=== PATIENT | male | born 1975 | race Caucasian/White ===

== ENCOUNTER 2018-07-21 12:29 | Emergency (ER) | payer SELFPAY ==
[~2018-07-21] VITALS: Ht 177.8 cm; Wt 54.5 kg
[2018-07-21] MEDS ORDERED: UMEC62.5 (12:32)
[2018-07-21] MEDS ORDERED: ALBU8HFA IH (12:33)
[2018-07-21] MEDS ORDERED: PRED1 PO (12:33)
[2018-07-21 14:34] VITALS: BP 132/86
[2018-07-22] MEDS ORDERED: NICO-703 TD (19:10)
== END 2018-07-21 15:09 | disposition home or self-care (01) ==
LOC: EMS 12:36
DX: F15.10 Other stimulant abuse, uncomplicated (principal); F31.9 Bipolar disorder, unspecified; J44.9 Chronic obstructive pulmonary disease, unspecified; F17.210 Nicotine dependence, cigarettes, uncomplicated
CPT/HCPCS: 99283

== ENCOUNTER 2018-07-22 18:49 | Inpatient (IN) | payer MEDICAID ==
[~2018-07-22] VITALS: Ht 177.8 cm; Wt 54.9 kg
[~2018-07-22 18:49] MED LIST: ALBU8HFA IH; PRED1 PO; UMEC62.5
[2018-07-22] MEDS ORDERED: NICO-703 TD (19:10)
[2018-07-22 20:22] LABS: BASOPHILS % (AUTO) 0.8 % (0.0-2.0); EOSINOPHILS % (AUTO) 1.9 % (1.0-6.0); HEMATOCRIT 40.6 % (41-53); HEMOGLOBIN 13.4 g/dL (13.5-17.5); LYMPHOCYTES # (AUTO) 2.2 K/uL (1.0-4.8); LYMPHOCYTES % (AUTO) 21.6 % (22.0-44.0); MEAN CORPUSCULAR HEMOGLOBIN 30.5 pg (26.0-34.0); MEAN CORPUSCULAR HGB CONC 33.1 G/dL (31.0-37.0); MEAN CORPUSCULAR VOLUME 92 fL (80-100); MONOCYTES # (AUTO) 0.8 K/uL (0.1-1.0); MONOCYTES % (AUTO) 7.7 % (2.0-9.0); NEUTROPHILS # (AUTO) 7.1 K/uL (1.8-7.7); PLATELET COUNT (AUTO) 366 K/uL (150-450); RED CELL DISTRIBUTION WIDTH 14.1 % (11.5-14.5)
[2018-07-22 20:27] LABS: ANION GAP 5 mmol/L (8-16); CARBON DIOXIDE 35 mmol/L (22-29); CHLORIDE 103 mmol/L (98-107); CREATININE 0.92 mg/dL (0.60-1.30); GLOMERULAR FILTR. RATE CALC > 60 mL/min (>60); GLUCOSE,RANDOM 116 mg/dL (70-110); POTASSIUM 3.9 mmol/L (3.5-5.1); SODIUM SERUM 143 mmol/L (136-145); UREA NITROGEN, BLOOD 15 mg/dL (7-18)
[2018-07-22 20:31] LABS: AMPHET/METH SCREEN,URINE NEGATIVE (NEGATIVE); BARBITURATE SCREEN, URINE NEGATIVE (NEGATIVE); BENZODIAZEPINES SCREEN,URINE NEGATIVE (NEGATIVE); CANNABINOID SCREEN,URINE NEGATIVE (NEGATIVE); COCAINE SCREEN,URINE NEGATIVE (NEGATIVE); METHADONE SCREEN, URINE NEGATIVE (NEGATIVE); OPIATE SCREEN,URINE NEGATIVE (NEGATIVE)
[2018-07-22 20:33] LABS: PHENCYCLIDINE SCREEN,URINE NEGATIVE (NEGATIVE)
[2018-07-22 20:39] LABS: ALANINE AMINOTRANSFERASE 24 U/L (12-78); ALBUMIN 3.5 g/dL (3.4-5.0); ALKALINE PHOSPHATASE 88 U/L (46-116); ASPARTATE AMINOTRANSFERASE 18 U/L (15-37); BILIRUBIN,TOTAL 0.1 mg/dL (0.1-1.0); TOTAL PROTEIN, SERUM 7.5 g/dL (6.4-8.2)
[2018-07-22] MEDS ORDERED: DiphenhydrAMINE HCL 50 MG/ML VIAL IM ONE (21:30)
[2018-07-22] MEDS ORDERED: LORazepam 2 MG/ML VIAL IM ONE (21:30)
[2018-07-22] MEDS ORDERED: HALOPERIDOL LACTATE 5 MG/ML VIAL IM ONE (21:30)
[2018-07-22] MEDS ORDERED: HALOPERIDOL 5 MG TABLET PO PRN (23:00)
[2018-07-23 01:11] VITALS: BP 112/78
[2018-07-23] MEDS: ZOLPIDEM TARTRATE 10 MG TABLET PO PRN (02:45)
[2018-07-23] MEDS ORDERED: PNEUMOCOCCAL VACCINE POLYVALENT 0.5 ML VIAL [PPSV23] IM ONE (04:45)
[2018-07-23] MEDS ORDERED: GuaiFENesin/D-METHORPHAN [SUGAR-FREE] 200-20MG/10 ML SYRUP UDCUP PO PRN (07:30)
[2018-07-23] MEDS ORDERED: ACETAMINOPHEN 325 MG TABLET PO PRN (07:30)
[2018-07-23] MEDS ORDERED: PETROLATUM,WHITE 71 GM JELLY TP PRN (07:30)
[2018-07-23] MEDS ORDERED: NICOTINE 14 MG/24 HOUR PATCH TD PRN (07:30)
[2018-07-23] MEDS ORDERED: LOPERAMIDE HCL 2 MG CAPSULE PO PRN (07:30)
[2018-07-23] MEDS ORDERED: ONDANSETRON HCL 4 MG TABLET PO PRN (07:30)
[2018-07-23] MEDS ORDERED: CloNIDine HCL 0.1 MG TABLET PO PRN (07:30)
[2018-07-23] MEDS ORDERED: DOCUSATE SODIUM 100 MG CAPSULE PO PRN (07:30)
[2018-07-23] MEDS ORDERED: ALBUTEROL SULFATE HFA 90 MCG/PUFF 8 GM INHALER IH PRN (07:30)
[2018-07-23] MEDS ORDERED: MAGNESIUM HYDROXIDE SUSPENSION 30 ML UDCUP PO PRN (07:30)
[2018-07-23] MEDS ORDERED: IBUPROFEN 400 MG TABLET PO PRN (07:30)
[2018-07-23] MEDS ORDERED: MAG HYDROX/AL HYDROX/SIMETH ES 30 ML SUSPENSION UDCUP PO PRN (07:30)
[2018-07-23 07:37] LABS: HEMOGLOBIN A1C 5.2 % (4.5-6.2)
[2018-07-23 07:51] LABS: CHOL/HDL RATIO 2.8 (4.2-7.3); FREE T4 (FREE THYROXINE) 0.97 ng/dL (0.76-1.46); THYROID STIMULATING HORMONE 1.36 uIU/mL (0.36-3.74)
[2018-07-23 08:00] VITALS: BP 110/65
[2018-07-23] MEDS: FLUoxetine HCL 20 MG CAPSULE PO SCH (11:14)
[2018-07-23] MEDS: NICOTINE 21 MG/24 HOUR PATCH TD SCH (11:14)
[2018-07-23] MEDS: ALBUTEROL SULFATE HFA 90 MCG/PUFF 8 GM INHALER IH PRN ×2 (11:15→16:45)
[2018-07-23 17:39] VITALS: BP 107/76
[2018-07-23] MEDS: LORazepam 2 MG TABLET PO PRN (19:28)
[2018-07-23] MEDS ORDERED: IPRATROPIUM BROMIDE HFA 17 MCG/PUFF 12.9 GM INHALER IH PRN (19:30)
[2018-07-23] MEDS: FLUTICASONE/VILANTEROL 200-25 MCG/INH INHALER [14] IH SCH (21:45)
[2018-07-24 06:39] VITALS: BP 100/64
[2018-07-24 08:08] VITALS: BP 113/80
[2018-07-24] MEDS ORDERED: FLUTICASONE/VILANTEROL 200-25 MCG/INH INHALER [14] IH SCH (09:00)
[2018-07-24] MEDS: FLUoxetine HCL 20 MG CAPSULE PO SCH (09:07)
[2018-07-24] MEDS: NICOTINE 21 MG/24 HOUR PATCH TD SCH (09:08)
[2018-07-24] MEDS: ALBUTEROL SULFATE HFA 90 MCG/PUFF 8 GM INHALER IH PRN ×2 (09:25→16:06)
[2018-07-24 16:06] VITALS: BP 125/83
[2018-07-24] MEDS: LORazepam 2 MG TABLET PO PRN (17:54)
[2018-07-24] MEDS: FLUTICASONE/VILANTEROL 200-25 MCG/INH INHALER [14] IH SCH (20:05)
[2018-07-24] MEDS: ZOLPIDEM TARTRATE 10 MG TABLET PO PRN (20:35)
[2018-07-25 06:35] VITALS: BP 121/68
[2018-07-25 08:24] VITALS: BP 114/75
[2018-07-25] MEDS: FLUoxetine HCL 20 MG CAPSULE PO SCH (08:51)
[2018-07-25] MEDS: NICOTINE 21 MG/24 HOUR PATCH TD SCH (08:51)
[2018-07-25] MEDS: ALBUTEROL SULFATE HFA 90 MCG/PUFF 8 GM INHALER IH PRN (11:29)
[2018-07-25] MEDS: LORazepam 2 MG TABLET PO PRN (12:34)
[2018-07-25 16:20] VITALS: BP 110/63
[2018-07-25] MEDS: FLUTICASONE/VILANTEROL 200-25 MCG/INH INHALER [14] IH SCH (20:14)
[2018-07-26 06:29] VITALS: BP 108/61
[2018-07-26] MEDS: FLUoxetine HCL 20 MG CAPSULE PO SCH (08:28)
[2018-07-26] MEDS: NICOTINE 21 MG/24 HOUR PATCH TD SCH (08:29)
[2018-07-26] MEDS: LORazepam 2 MG TABLET PO PRN ×2 (08:29→21:52)
[2018-07-26 09:38] VITALS: BP 107/73
[2018-07-26 16:10] VITALS: BP 107/67
[2018-07-26] MEDS: FLUTICASONE/VILANTEROL 200-25 MCG/INH INHALER [14] IH SCH (20:09)
[2018-07-27] MEDS ORDERED: PRED1 PO (04:46)
[2018-07-27] MEDS ORDERED: FLUT1BLS IH (04:47)
[2018-07-27] MEDS ORDERED: FLUO-191 PO (04:47)
[2018-07-27 06:38] VITALS: BP 119/75
[2018-07-27] MEDS: FLUoxetine HCL 20 MG CAPSULE PO SCH (09:28)
[2018-07-27] MEDS: NICOTINE 21 MG/24 HOUR PATCH TD SCH (09:28)
== END 2018-07-27 09:30 | disposition home or self-care (01) | DRG 753 ==
LOC: EMS 18:51 → B2S 22:00
PROVIDERS: ADMIT Psychiatry & Neurology Child & Adolescent Psychiatry; ATTEND Psychiatry & Neurology Child & Adolescent Psychiatry
DX: F31.30 Bipolar disorder, current episode depressed, mild or moderate severity, unspecified (principal); R45.851 Suicidal ideations; D64.9 Anemia, unspecified; F10.10 Alcohol abuse, uncomplicated; F15.90 Other stimulant use, unspecified, uncomplicated; F41.9 Anxiety disorder, unspecified; F19.10 Other psychoactive substance abuse, uncomplicated; F17.210 Nicotine dependence, cigarettes, uncomplicated; J44.9 Chronic obstructive pulmonary disease, unspecified; Z59.0 Homelessness; Z91.5 Personal history of self-harm; Z71.41 Alcohol abuse counseling and surveillance of alcoholic; Z71.51 Drug abuse counseling and surveillance of drug abuser; Z79.899 Other long term (current) drug therapy; Z28.21 Immunization not carried out because of patient refusal
CPT/HCPCS: 83036; 84439; 84443; 99285; G0480; J3535